=== PATIENT | male | born 1945 | race Caucasian/White ===

== ENCOUNTER → 2016-08-13 | Day surgery (SDC) | payer BC ==
[2016-08-02 10:04] VITALS: Ht 176.5 cm; Wt 113.6 kg
[~2016-08-13] VITALS: Ht 176.5 cm; Wt 113.6 kg
[~2016-08-13] MED LIST: ASCO500T3 PO; CHOL1000 PO; CLOP1TAB15 PO; CLR10 PO; FLV400 PO; LANS30CA12 PO; LEVO75TA5 PO; LIDOCAINE HCL 2% 2 ML VIAL (20MG/ML) ONE; LISI10TA PO; MIDAZOLAM HCL 1 MG/ML 2ML VIAL ONE; OLOP0.1S3 OPB; OMEG10007 PO; ONDANSETRON INJ 2 MG/ML 2 ML VIAL ONE; PARO10TA3 PO; PROPOFOL IV EMULSION 10 MG/ML 20 ML VIAL IV ONE; SIMV20TA2 PO; SODIUM CHLORIDE 0.9% 500ML 500 ML IV ONE; ZOLP10TA PO
[2016-08-13 09:15] VITALS: TEMP 37
--- NOTE | 2016-08-13 09:30 | Endo History and Physical ---
History & Physical Date of Service: Aug 13, 2016. Chief Complaint: history of polyps Referring Physician: Dr. Jc Clemons History of Present Illness 70 yo CM who presents for colonoscopy secondary to history of colon polyps. Past Surgical History Hx Cardiac Surgery: No Hx Internal Defibrillator: No Hx Abdominal Surgery: Yes (APPY) Hx of Implantable Prosthesis: No Hx Post-Op Nausea and Vomiting: No Hx Cancer Surgery: No Hx Thoracic Surgery: No Hx Orthopedic: Yes (RT KNEE ARTHROSCOPY X 2, RT RCR) Hx Urinary Tract Surgery: No Family History IBD Social History Smoking Status: Former Smoker Hx Substance Use: No Hx Alcohol Use: No Allergies Coded Allergies: No Known Allergies (Verified , 08/02/16) Current Medications Reported Home Medications Medications Dose Route/Sig Max Daily Dose Days Date Category Ambien (Zolpidem Tartrate) 10 Mg Tab 10 Mg PO HS 08/02/16 Reported Vitamin D3 (Cholecalciferol) 1,000 Unit Tab 1 Tab PO DAILY AFTERNOON 90 08/02/16 Reported Vitamin C (Ascorbic Acid) 500 Mg Tab 1 Tab PO DAILY AFTERNOON 08/02/16 Reported Paroxetine (Paroxetine HCl) 10 Mg Tab 0.5 Tab PO DAILY AFTERNOON 08/02/16 Reported Patanol 0.1% Oph (Olopatadine Hcl) 0.1 % Debi 1 Drop OPB DAILY PRN 08/02/16 Reported Levothyroxine Sodium 75 Mcg Tab 1 Tab PO DAILY AFTERNOON 90 08/02/16 Reported Claritin (Loratadine) 10 Mg Tab 10 Mg PO DAILY PRN 08/02/16 Reported Orange-3 (Fish Oil) 1 Ea Cap 2 Cap PO DAILY AFTERNOON 08/05/10 Reported Folvite * (Folic Acid) 400 Mcg Tab 400 Mcg PO DAILY AFTERNOON 08/05/10 Reported Plavix (Clopidogrel Bisulfate) 75 Mg Tab 75 Mg PO QPM 08/05/10 Reported Prinivil (Lisinopril) 10 Mg Tab 10 Mg PO HS 06/20/10 Reported Zocor (Simvastatin) 20 Mg Tab 20 Mg PO HS 03/29/09 Reported Prevacid (Lansoprazole) 30 Mg Capcr 30 Mg PO DAILY AFTERNOON 03/29/09 Reported Vital Signs Weight (Kilograms): 113.64 Height (Feet): 5 Height (Inches): 9.5 Date Time Temp Pulse Resp B/P Pulse Ox O2 Delivery O2 Flow Rate FiO2 08/13/16 09:15 37.0 62 16 138/62 96 Room Air Physical Exam General Appearance: WD/WN, no apparent distress Respiratory/Chest: Auscultation: breath sounds normal Cardiovascular: Heart Auscultation: RRR Abdomen: Bowel Sounds: normal Inspection & Palpation: soft, non-distended, no tenderness, guarding & rebound Assessment and Plan Assessment: 70 yo CM who presents for colonoscopy secondary to history of colon polyps. Plan: Proceed with colonoscopy.
--- NOTE | 2016-08-13 10:29 | GI REPORT ---
Procedure Date: 08/13/2016 9:29 AM Procedure: Colonoscopy Indications: High risk colon cancer surveillance: Personal history of colonic polyps Medicines: Monitored Anesthesia Care Complications: No immediate complications. Estimated Blood Loss: Estimated blood loss: none. Procedure: Pre-Anesthesia Assessment: - Prior to the procedure, a History and Physical was performed, and patient medications and allergies were reviewed. The patient's tolerance of previous anesthesia was also reviewed. The risks and benefits of the procedure and the sedation options and risks were discussed with the patient. All questions were answered, and informed consent was obtained. Prior Anticoagulants: The patient has taken Plavix (clopidogrel), last dose was 5 days prior to procedure. ASA Grade Assessment: III - A patient with severe systemic disease. After reviewing the risks and benefits, the patient was deemed in satisfactory condition to undergo the procedure. After I obtained informed consent, the scope was passed under direct vision. Throughout the procedure, the patient's blood pressure, pulse, and oxygen saturations were monitored continuously. The scope was introduced through the anus and advanced to the terminal ileum. The colonoscopy was performed without difficulty. The patient tolerated the procedure well. The quality of the bowel preparation was good. The terminal ileum, ileocecal valve, appendiceal orifice, and rectum were photographed. Findings: Two sessile polyps were found in the transverse colon and in the ascending colon. The polyps were 5 to 7 mm in size. These polyps were removed with a hot snare. Resection and retrieval were complete. Multiple small-mouthed diverticula were found in the sigmoid colon. Non-bleeding internal hemorrhoids were found during retroflexion. The hemorrhoids were small. Impression: - Two 5 to 7 mm polyps in the transverse colon and in the ascending colon, removed with a hot snare. Resected and retrieved. - Diverticulosis in the sigmoid colon. - Non-bleeding internal hemorrhoids. Recommendation: - Resume previous diet. - Continue present medications. - Repeat colonoscopy for surveillance based on pathology results. - Return to primary care physician as previously scheduled. Luis E Caba DO 08/13/2016 10:28:44 AM This report has been signed electronically. Note Initiated On: 08/13/2016 9:29 AM I attest to the content of the Intraoperative Record and orders documented therein, exceptions below
--- NOTE | 2016-08-13 10:31 | Anesthesiology Progress Note ---
Anesthesia Post Op Note Date & Time Aug 13, 2016 at 10:30 Vital Signs Pain Intensity: 0 Vital Signs Past 12 Hours Date Time Temp Pulse Resp B/P Pulse Ox O2 Delivery O2 Flow Rate FiO2 08/13/16 10:24 58 16 130/84 95 Room Air 08/13/16 10:17 54 18 117/75 95 Room Air 08/13/16 10:10 51 16 130/77 96 Room Air 08/13/16 09:15 37.0 62 16 138/62 96 Room Air Notes Mental Status: alert / awake / arousable, participated in evaluation Pt Amnestic to Procedure: Yes Nausea / Vomiting: adequately controlled Pain: adequately controlled Airway Patency, RR, SpO2: stable & adequate BP & HR: stable & adequate Hydration State: stable & adequate Anesthetic Complications: no major complications apparent Pt doing well.
--- NOTE | 2016-08-13 10:32 | Discharge Instructions ---
Endoscopy Patient Instructions Date / Procedure(s) Performed Aug 13, 2016. Colonoscopy Allergy Information Coded Allergies: No Known Allergies (Verified , 08/02/16) Discharge Date / Findings Aug 13, 2016. Colon polyps Diverticulosis Internal hemorrhoids Medication Instructions Stopped Medication(s): stopped Plavix on Tuesday,stopped all other meds on Tuesday OK to resume all medications today as prescribed Reported Home Medications Medications Dose Route/Sig Max Daily Dose Days Date Category Ambien (Zolpidem Tartrate) 10 Mg Tab 10 Mg PO HS 08/02/16 Reported Vitamin D3 (Cholecalciferol) 1,000 Unit Tab 1 Tab PO DAILY AFTERNOON 90 08/02/16 Reported Vitamin C (Ascorbic Acid) 500 Mg Tab 1 Tab PO DAILY AFTERNOON 08/02/16 Reported Paroxetine (Paroxetine HCl) 10 Mg Tab 0.5 Tab PO DAILY AFTERNOON 08/02/16 Reported Patanol 0.1% Oph (Olopatadine Hcl) 0.1 % Debi 1 Drop OPB DAILY PRN 08/02/16 Reported Levothyroxine Sodium 75 Mcg Tab 1 Tab PO DAILY AFTERNOON 90 08/02/16 Reported Claritin (Loratadine) 10 Mg Tab 10 Mg PO DAILY PRN 08/02/16 Reported [place]-3 (Fish Oil) 1 Ea Cap 2 Cap PO DAILY AFTERNOON 08/05/10 Reported Folvite * (Folic Acid) 400 Mcg Tab 400 Mcg PO DAILY AFTERNOON 08/05/10 Reported Plavix (Clopidogrel Bisulfate) 75 Mg Tab 75 Mg PO QPM 08/05/10 Reported Prinivil (Lisinopril) 10 Mg Tab 10 Mg PO HS 06/20/10 Reported Zocor (Simvastatin) 20 Mg Tab 20 Mg PO HS 03/29/09 Reported Prevacid (Lansoprazole) 30 Mg Capcr 30 Mg PO DAILY AFTERNOON 03/29/09 Reported Provider Instructions Activity Restrictions - No exercising or heavy lifting for 24 hours. - Do not drink alcohol the day of the procedure. - Do not drive a car or operate machinery until the day after the procedure. - Do not make any important decisions or sign important papers in 24 hours after the procedure. Following Day: - Return to full activity which may include returning to work/school. Diet Start your diet with liquids and light foods (jello, soup, juice, toast). Then eat your usual diet if not nauseated. Treatment For Common After Affects For mild abdominal pain, bloating, or excessive gas: - Rest - Eat lightly - Lie on right side Follow-Up Information Follow-up with Dr. Jc Clemons as scheduled Anesthesia Information What You Should Know You have had a procedure that required some medicine to reduce anxiety and discomfort. This treatment is called moderate sedation. After receiving the treatment, you may be sleepy, but you will be able to breathe on your own. The effects of the treatment may last for several hours. Follow these instructions along with Activity/Diet recommendations noted above: * Do NOT do anything where dizziness or clumsiness would be dangerous. * Rest quietly at home today, then you can be up and about tomorrow. * Have a responsible person stay with you the rest of today. * You may have had an I.V. today. If so, you may take the dressing off later today. Recommendations Call your doctor if: * Trouble breathing * Continuous vomiting for more than 24 hours * Temperature above 101 degrees * Severe abdominal pain or bloating * Pain not relieved by pain medicine ordered * There is increased drainage or redness from any incision * A large amount of rectal bleeding greater than 2-3 tablespoons. (If you had a polyp/s removed or have hemorrhoids, a small amount of blood - from the rectum is to be expected.) * You have any unanswered questions or concerns. IN THE EVENT OF A SERIOUS EMERGENCY, GO TO THE NEAREST EMERGENCY ROOM Your discharge instructions were prepared by provider Luis E Caba. Patient Instructions Signature Page Cristian Rivera Patient (or Guardian) Signature/Date: I have read and understand the instructions given to me by my caregivers. Caregiver/RN/Doctor Signature/Date: The above-named patient and/or guardian has received patient instructions on this date. + Original Patient Signature Page (only) stays with chart. Please make copy for patient.
[2016-08-13 10:37] VITALS: BP 142/86; PULSE 55; O2SAT 96
== END | disposition home or self-care (01) ==
LOC: C.GI 08:56
PROVIDERS: ATTEND Internal Medicine
DX: Z12.11 Encounter for screening for malignant neoplasm of colon (principal); Z86.010 Personal history of colon polyps; D12.2 Benign neoplasm of ascending colon; D12.3 Benign neoplasm of transverse colon; K57.30 Diverticulosis of large intestine without perforation or abscess without bleeding; K64.8 Other hemorrhoids; Z79.02 Long term (current) use of antithrombotics/antiplatelets; Z79.899 Other long term (current) drug therapy; Z87.891 Personal history of nicotine dependence

== ENCOUNTER → 2016-11-03 | Outpatient (CLI) | payer BC ==
[~2016-11-03] MED LIST changes: -LIDOCAINE HCL 2% 2 ML VIAL (20MG/ML) ONE; -MIDAZOLAM HCL 1 MG/ML 2ML VIAL ONE; +OLOP0.1S2 OPB; -OLOP0.1S3 OPB; -ONDANSETRON INJ 2 MG/ML 2 ML VIAL ONE; -PROPOFOL IV EMULSION 10 MG/ML 20 ML VIAL IV ONE; -SODIUM CHLORIDE 0.9% 500ML 500 ML IV ONE
== END | disposition home or self-care (01) ==
LOC: C.LAB1850 09:37
PROVIDERS: ATTEND Internal Medicine
DX: R97.20 Elevated prostate specific antigen [PSA] (principal)

== ENCOUNTER → 2017-01-20 | Outpatient (CLI) | payer BC | END | disposition home or self-care (01) | LOC: C.PATHSPEC 12:48 | PROVIDERS: ATTEND Urology | DX: R97.20 Elevated prostate specific antigen [PSA] (principal) ==

== ENCOUNTER → 2017-02-10 | Outpatient (CLI) | payer BC ==
--- NOTE | 2017-02-10 09:27 | DIAGNOSTIC IMAGING REPORT ---
L ANKLE MIN 3 VIEWS ROUTINE CLINICAL HISTORY: M25.579 left ankle pain COMPARISON: None. DISCUSSION: No acute fractures or dislocations are visualized. There is a small ossicle at the level the medial malleolar tip. This is felt to be old. There is a small plantar calcaneal spur. No erosive or destructive changes are visualized. IMPRESSION: No fractures identified. No erosive or destructive lesions are evident. Electronically signed by: Robert Nieves M.D. 02/10/2017 9:26 AM Dictated Date/Time: 02/10/2017 9:25 AM
[2017-02-10 10:17] LABS: BASO % 0.2 %; BASO ABS # 0.01 K/uL (0-0.2); COMPLETE YES; HEMATOCRIT 43.1 % (42-52); IG% 0.8 %; LYMPH % 37.2 %; LYMPH ABS # 2.35 K/uL (1.2-3.4); MEAN CELL VOLUME 87.2 fL (80-100); MEAN CORPUSCULAR HEMOGLOBIN 30.2 pg (25-34); MEAN CORPUSCULAR HGB CONC 34.6 g/dl (32-36); MEAN PLATELET VOLUME 10.6 fL (7.4-10.4); MONO % 10.1 %; NEUT % 48.7 %; PLATELET COUNT 179 K/uL (130-400); RED BLOOD COUNT 4.94 M/uL (4.7-6.1); WHITE BLOOD COUNT 6.31 K/uL (4.8-10.8)
== END | disposition home or self-care (01) ==
LOC: C.RAD1850 09:03
PROVIDERS: ATTEND Nurse Practitioner Adult Health
DX: M25.579 Pain in unspecified ankle and joints of unspecified foot (principal)

== ENCOUNTER → 2017-02-23 | Outpatient (CLI) | payer BC ==
[~2017-02-23] MED LIST changes: -OLOP0.1S2 OPB; +OLOP0.1S3 OPB
== END | disposition home or self-care (01) ==
LOC: C.LAB1850 09:58
PROVIDERS: ATTEND Nurse Practitioner Adult Health
DX: E79.0 Hyperuricemia without signs of inflammatory arthritis and tophaceous disease (principal)

== ENCOUNTER → 2017-04-13 | Outpatient (CLI) | payer BC ==
[2017-04-13 12:42] LABS: ESTIMATED AVERAGE GLUCOSE 137 mg/dl; HA1C FLAG Normal (Normal)
[2017-04-13 12:43] LABS: ALT/SGPT 32 U/L (12-78); AST/SGOT 21 U/L (15-37); BLOOD UREA NITROGEN 21 mg/dl (7-18); BUN/CREATININE RATIO 17.8 (10-20); CALCIUM 8.5 mg/dl (8.5-10.1); CARBON DIOXIDE 24 mmol/L (21-32); CHLORIDE 107 mmol/L (98-107); CREATININE 1.15 mg/dl (0.60-1.40); GLUCOSE 135 mg/dl (70-99); POTASSIUM 4.4 mmol/L (3.5-5.1); SODIUM 137 mmol/L (136-145)
[2017-04-13 12:58] LABS: CHOLESTEROL 175 mg/dl (0-200); HDL CHOLESTEROL 44 mg/dl; LDL CHOLESTEROL CALCULATED 106 mg/dl; TRIGLYCERIDES 127 mg/dl (0-150); VERY LOW DENSITY LIPOPROT CALC 25 mg/dl
== END | disposition home or self-care (01) ==
LOC: C.LAB1850 10:47
PROVIDERS: ATTEND Internal Medicine
DX: E78.5 Hyperlipidemia, unspecified (principal); E03.9 Hypothyroidism, unspecified; E11.9 Type 2 diabetes mellitus without complications

== ENCOUNTER → 2017-05-24 | Outpatient (CLI) | payer BC ==
--- NOTE | 2017-05-24 16:45 | DIAGNOSTIC IMAGING REPORT ---
L VENOUS DOPP LOWER EXT UNILAT CLINICAL HISTORY: M79.669 Calf painR22.40 Localized swelling, mass and lump, lower pain. Edema. TECHNIQUE: Venous Doppler COMPARISON STUDY: None FINDINGS: Superficial venous thrombosis involving the left calf. All major deep venous structures are intact. No evidence of deep venous thrombosis. IMPRESSION: Mild superficial calf superficial thrombophlebitis. No evidence for deep venous thrombosis. The above report was generated using voice recognition software. It may contain grammatical, syntax or spelling errors. Electronically signed by: Martin Arce M.D. 05/24/2017 4:43 PM Dictated Date/Time: 05/24/2017 4:42 PM
== END | disposition home or self-care (01) ==
LOC: C.ULTR 15:53
PROVIDERS: ATTEND Physician Assistant
DX: M79.669 Pain in unspecified lower leg (principal); R22.40 Localized swelling, mass and lump, unspecified lower limb

== ENCOUNTER 2019-01-29 09:51 | Observation (INO) ==
[2019-01-29] MEDS ORDERED: ASPIRIN 81 MG CHEW ONE (12:29)
[2019-01-29] MEDS ORDERED: CLOPIDOGREL BISULFATE 75 MG TAB ONE (12:30)
[2019-01-29] MEDS ORDERED: NiCARDipine HCL INJ 2.5 MG/ML 10 ML AMP ONE (13:20)
[2019-01-29] MEDS ORDERED: HEPARIN (PORCINE) 1000 UNIT/ML 10 ML (CATH LAB USE ONLY) ONE ×2 (13:20→14:36)
[2019-01-29] MEDS ORDERED: MIDAZOLAM HCL 1 MG/ML 2ML VIAL ONE ×2 (13:21→14:41)
[2019-01-29] MEDS ORDERED: fentaNYL citrate 100 MCG/2 ML VIAL ONE (13:21)
[2019-01-29] MEDS ORDERED: NITROGLYCERIN/D5W 100MCG/ML 20ML SYR ONE (13:22)
--- NOTE | 2019-01-29 13:33 | Pre Anesthesia Assessment ---
Date of Service January 29, 2019 Pre Sedation Assessment Vital Signs Temp Pulse Resp BP Pulse Ox 01/29/19 10:24 98.1 F 45 L 16 177/90 H 95 Cardiovascular RRR, no murmur, no edema Respiratory normal respiratory effort, lungs clear to auscultation Pre-Sedation Airway Assessment Smoking Status: Never smoker Hx Sleep Apnea: No Hx Difficult Intubation: No Short, Thick Neck: No Thyromental Distance: > or= 3.5 Finger Breadths Oral Cavity: + WNL Mallampati Class: III ASA: ASA3 NPO Status Date of Last Intake of Fluids: 01/29/19 Time of Last Intake of Fluids: 07:00 Last Oral Intake of Fluids Comment: sips with pills Date of Last Intake of Solid Food: 01/28/19 Time of Last Intake of Solid Foods: 23:00 Procedure Planning Contraindications for Sedation: none Current Medications Reviewed: Yes Notes The planned sedation has been discussed with the patient. Informed Consent was obtained. I have identified the patient, determined the appropriateness of sedation and have assessed the patient immediately prior to the procedure. All medicine(s) and interventions are by my order.
--- NOTE | 2019-01-29 13:33 | History & Physical Bridge Note ---
Date of Service January 29, 2019 History & Physical Bridge Note I have examined the patient, reviewed the History & Physical and in the interval since the performance of the History & Physical I have noted the following changes of clinical significance: no changes noted
[2019-01-29] MEDS ORDERED: CLOPIDOGREL BISULFATE 300 MG TAB ONE (14:44)
[2019-01-29] MEDS ORDERED: ONDANSETRON INJ 2 MG/ML 2 ML VIAL IV PRN (14:46)
[2019-01-29] MEDS ORDERED: ACETAMINOPHEN 325 MG TAB PO PRN (14:46)
[2019-01-29] MEDS ORDERED: DESLORATADINE 5 MG PO PRN (14:48)
[2019-01-29] MEDS ORDERED: OLOPATADINE OP PRN (14:48)
--- NOTE | 2019-01-29 14:50 | Post Anesthesia Assessment ---
Date of Service January 29, 2019 Post Sedation Assessment Vital Signs Temp Pulse Resp BP Pulse Ox 01/29/19 10:24 98.1 F 45 L 16 177/90 H 95 Recovery Score Activity: Moves 4 extremities Respiration: Deep Breath/Cough Circulation: +/-20% PreAnes Value Consciousness: Fully Awake Discharge Sedation Level of Care: Fast Track Phase II Post Sedation Plan On clinical assessment, the patient appears to have tolerated the sedation without complications. Patient is recovering as anticipated. Patient will continue to be monitored by nursing and may be discharged when sedation discharge criteria are met per below protocol. Upon Completions of procedure and additional 15 minutes continue every 5 minute vital signs and the P.A.R. score; then discharge to a Phase I or Fast Track to Phase II per the following guidelines: * Discharge Patient to appropriate Phase II area if PAR is 8 or greater or return to pre- procedure baseline. The post - procedure orders will be as directed. * If PAR score is less than 8 or not return to pre-procedure baseline then patient will follow Phase I monitoring till PAR is reached for Phase II. The Phase I may be done in procedure room or may call to secure a Phase I area. * If naloxone or flumazenil are used for reversal, hold in Phase I for continued monitoring from when last reversal dose was given for a minimum of 60 minutes or longer pending the nurse and/or physician discretion of patient condition before discharge to Phase II. Please call the Sedation Physician to re-evaluate and complete post-note for discharge to Phase II area. Do NOT discharge from procedure sedation or Phase 1 until post- sedation evaluation note is complete by procedure /sedation MD Sedation Discharge Instructions to be given to the patient at discharge to home.
--- NOTE | 2019-01-29 14:57 | Cardiac Catheterization ---
[facility] Data: Log Cut Off Sawyer Cardiac Status Clinical evaluation leading to the procedure CAD Presenation: Positive Stress Test Anginal Classification: CCS III Heart Failure: No Cardiogenic Shock within 24 Hours: No Cardiac Arrest within 24 Hours: No Imaging Studies Past 6 Months: Yes Stress Studies Past 6 Months: Yes Stress Echocardiogram: Yes - Positive and Risk/Extent of Ischemia (Intermediate) Diagnostic Physicians Name: Steve Lopez MD Status: Elective Closure Device Percutaneous Entry Location: Radial Closure Device: Radial Band Recommendations: PCI without planned CABG PCI Indication: + Stress Test Lesion Segment Name: Mid RCA Culprit Artery: Yes Stenosis Prior to Rx (%): 95 Chronic Total Occlusion: No IVUS: No FFR: No Pre-Procedure SILAS Flow: 3 Previously Treated Lesion: No Lesion Complexity: Non-High/Non-C Lesion Length (mm): 12 Thrombus Present: No Bifurcation Lesion: No Guidewire Across Lesion: Stenosis Post-Procedure (%): 0 Post-Procedure SILAS Flow: 3 Devices(s) Deployed: Yes Yes Intraprocedure Events Significant Disection: No Perforation: No Cardiac Cath Procedure Full Procedure Date January 29, 2019 Pre-Procedure Diagnosis Pre-Procedure Diagnosis: Positive Stress Test AUC Score AUC Score: 7 Post-Procedure Diagnosis Post-Procedure Diagnosis: Severe CAD, Successful PCI and Normal Intracardiac Pressures Procedure(s) Performed Procedure(s) Performed: Coronary Angiography, Left Heart Cath and Drug Eluting Stent Frame Straightener Steve Lopez MD Nursing Aide(s) Howard Estimated Blood Loss Estimated Blood Loss: 10 Medication(s) Medication(s): Clopidogrel, Fentanyl, Heparin, Lidocaine 1%, Nicardipine, Nitroglycerin and Versed Summary of Findings Indication: Accelerating angina, abnormal stress test Access: 6 Fr right radial artery Catheters: [place], AR-1 guide Findings: LM -moderate caliber, short, luminal irregularities LAD -moderate caliber, 50% proximal to mid disease at takeoff of first septal, 30 to 40% mid segment disease, distal luminal irregularities prior to wrapping around apex. Gives off 2 small diagonals without significant disease Ramusmoderate caliber vessel, proximal luminal irregularities, bifurcates in the midsegment Circumflex -small caliber vessel, luminal irregularities, gives off high OM1 with mild disease. RCA -dominant, large caliber vessel, 50% earlymid RCA, 95% latemid, 30% distal prior to takeoff of right PDA. PLB/PDA luminal irregularities LVEDP -15 -- PCI -- Antithrombotic therapy: Heparin, clopidogrel Procedure: RCA cannulated with AR-1 guide Laundry Tub Maker 50 wire passed across lesion into distal vessel Latemid lesion predilated with 2.5 compliant balloon Dilated lesion stented with 4.0 x 18 mm [place] drug-eluting stent Stent post-dilated with 4.5 noncompliant balloon IC vasodilators administered for spasm Post procedure SILAS 3 flow, stent well expanded with minimal residual stenosis and no apparent cardiac complications. Arterial Closure: TR band Summary: 1. Severe single vessel coronary artery disease -95% latemid RCA stenosis 2. Moderate residual coronary artery disease 50% proximal LAD at takeoff of the first septal 50% earlymid RCA upstream from new AIDEN 3. Normal intracardiac filling pressure 4. Successful PCI of latemid RCA with single drug-eluting stent (4.0 x 18 mm Geraldo; postdilated with 4.5 NC). Recommendations: To PCU for continued monitoring Reloaded with clopidogrel in medical lab technologist Continue dual-antiplatelet therapy for at least 6-month Continue statin, and ASCVD risk factor modification Consult cardiac Rehab Hemodynamics Rest Ao:: 147/65/99 Final Ao: 150/74/103 LV: 103/15 Recommendations Recommendations: PCI without planned CABG Specimens Specimens: None Radiation Exposure (mGy) 2647 Contrast (mls) 165 Fluids (cc crystalloids) Fluids (cc crystalloids): 100 Drains Drains: None Anesthesia Moderate Procedural Complication(s) None Disposition PCU I attest to the content of the Intraoperative Record and any orders documented therein. Any exceptions are noted below.
[2019-01-29] MEDS ORDERED: SODIUM CHLORIDE 0.9% 1000ML 1,000 ML IV SCH (15:00)
[2019-01-29] MEDS ORDERED: FAMCICLOVIR 250 MG PO SCH (15:00)
[2019-01-29] MEDS ORDERED: lisinopriL 10 MG TAB PO ONE (16:15)
[2019-01-29] MEDS ORDERED: HydrALAZINE HCL 20 MG/ML VIAL IV STA (17:56)
[2019-01-29] MEDS ORDERED: HydrALAZINE HCL 20 MG/ML VIAL ONE (18:02)
[2019-01-29] MEDS: PANTOprazole 40 MG TAB PO SCH (19:42)
[2019-01-29] MEDS: METOPROLOL TARTRATE 25 MG TAB PO SCH (19:42)
[2019-01-29] MEDS ORDERED: ZOLPIDEM TARTRATE 5 MG TAB PO SCH (21:00)
[2019-01-30] MEDS ORDERED: LEVOTHYROXINE SODIUM 75 MCG TABLET PO SCH (06:30)
[2019-01-30 07:22] LABS: Basophils # (auto) 0.02 K/uL (0-0.2); Basophils % (auto) 0.3 %; Eosinophils # (auto) 0.19 K/uL (0-0.5); Eosinophils % (auto) 2.9 %; Hematocrit (blood only) 40.6 % (42-52); Hemoglobin 13.9 g/dL (14.0-18.0); Immature Granulocytes # (auto) 0.06 K/uL (0.00-0.02); Immature Granulocytes % (auto) 0.9 %; Lymphocytes # (auto) 1.84 K/uL (1.2-3.4); Lymphocytes % (auto) 28.4 %; Mean Corpuscular Hemoglobin 30.4 pg (25-34); Mean Corpuscular Hgb Conc 34.2 g/dL (32-36); Mean Corpuscular Volume 88.8 fL (80-100); Monocytes # (auto) 0.76 K/uL (0.11-0.59); Monocytes % (auto) 11.7 %; Neutrophils # (auto) 3.61 K/uL (1.4-6.5); Neutrophils % (auto) 55.8 %; Platelet Count 160 K/uL (130-400); RDW Coefficient of Variation 13.6 % (11.5-14.5); RDW Standard Deviation 44.4 fL (36.4-46.3); Red Blood Count 4.57 M/uL (4.7-6.1); White Blood Count 6.48 K/uL (4.8-10.8)
[2019-01-30 07:54] LABS: BUN Creatinine Ratio 15.1 (10-20); Calcium 8.9 mg/dl (8.5-10.1); Creatinine Clr Calc Pharmacy 79.2 ml/min; Est GFR (African American) 78.8; Potassium 3.9 mmol/L (3.5-5.1)
--- NOTE | 2019-01-30 08:50 | Cardiology Progress Note ---
Date of Service January 30, 2019 Assessment & Plan (1) Coronary artery disease: --status post successful PCI mid-late RCA (4.0 x 18 mm [place]); moderate residual CAD (50% proximal LAD, 50% early-mid RCA) 2. Hypertension--BP elevated 3. Bradycardia 4. Type 2 diabetes 5. History of TIA Subjective Patient is feeling well today. Post PCI with single AIDEN to late-mid RCA yesterday without complication. Also with moderate nonobstructive disease of the proximal LAD and early-mid RCA. No chest pain, shortness of breath, palpitations, lightheadedness, near syncope or syncope. No abnormal bleeding. No issues at right radial access site. Tele reviewed-- Sinus bradycardia in the mid 40s-50s. Review of Systems Review of Systems: All systems reviewed & are unremarkable except as noted in HPI & below Physical Exam Physical Exam: General: No acute distress, comfortable. HEENT: Sclerae anicteric. Neck: Normal carotid upstrokes, no bruits. No appreciable JVD. Lungs: Clear to auscultation bilaterally without rales, rhonchi or wheezes. Cardiac: Regular rate and rhythm. S1-S2 normal. No appreciable murmur, gallop or rub. Abdomen: Soft and nontender. Bowel sounds normal. Extremities/vascular: --Well perfused. No peripheral edema. --Radial, DP and PT pulses 2+ bilaterally --Right radial acces site with minimal ecchymosis. No hematoma. Distal pulse/sensation intact Skin: No rash Neurologic: Nonfocal Psychiatric: Affect appropriate. Alert and oriented. Results & Data Vital Signs (Past 12 Hours) Vital Signs Temp Pulse Pulse Resp BP Pulse Ox 01/30/19 07:47 36.6 C 44 L 158/83 H 96 01/30/19 03:43 36.5 C 47 L 18 161/83 H 98 01/29/19 23:46 36.6 C 45 L 18 161/90 H 95 01/29/19 23:10 43 L PG Care Time/CCT Total # of Minutes Spent Total Time Spent with Patient: Total time spent is greater than 50% in coordination of care (as documented) at patient's floor/unit and/or counseling patient:
[2019-01-30] MEDS ORDERED: FOLIC ACID 400 MCG TAB PO SCH (09:00)
[2019-01-30] MEDS ORDERED: ASPIRIN 81 MG ECTAB PO SCH (09:00)
[2019-01-30] MEDS ORDERED: MULTIVITAMIN TAB PO SCH (09:00)
[2019-01-30] MEDS ORDERED: CLOPIDOGREL BISULFATE 75 MG TAB PO SCH (09:00)
[2019-01-30] MEDS ORDERED: lisinopriL 10 MG TAB PO SCH (09:00)
[2019-01-30] MEDS ORDERED: PARoxetine HCl 10 MG TAB PO SCH (09:00)
[2019-01-30] MEDS ORDERED: ATORVASTATIN 40 MG TAB PO SCH (09:00)
[2019-01-30] MEDS: METOPROLOL TARTRATE 25 MG TAB PO SCH (09:04)
[2019-01-30] MEDS: PANTOprazole 40 MG TAB PO SCH (09:05)
[2019-01-30] MEDS ORDERED: LORATADINE 10 MG TAB PO PRN (09:13)
--- NOTE | 2019-01-30 18:09 | Discharge Summary ---
Date of Service January 30, 2019 Admission HPI Per Admitting Provider Mr. Rivera is a 73 year old male with a medical history significant for hypertension, dyslipidemia, diet-controlled type 2 diabetes, history of TIA, chronic back pain, GERD and hypothyroidism who presented to [facility] in the setting of abnormal stress test. At initial visit he reported that over past 2 months his exercise tolerance has declined significantly. He previously was able to walk 30 minutes on the treadmill and gradually that has decreased to 3-4 minutes before experiencing limiting dyspnea and left-sided chest discomfort. He also notes the symptoms when walking up an incline about 40 yd to feed the dear at his home. His symptoms resolved within several minutes of rest. No symptoms at rest. He attributed to his symptoms to the weight he has gained since retiring about 15 years ago. He has intermittent lower extremity edema with associated heaviness. No claudication. No shortness of breath at rest, orthopnea, PND. He has occasional lightheadedness with activity. He denies palpitations, near-syncope or syncope. No abnormal bleeding. Due to his symptoms Dr. Clemons recommended stress echocardiogram which was performed last week. His stress test was abnormal with EKG changes and the patient experienced shortness of breath and chest pain with exercise. Resting echo showed normal LV function. Specialty Data Cardiology 1. Severe single vessel coronary artery disease -95% latemid RCA stenosis 2. Moderate residual coronary artery disease 50% proximal LAD at takeoff of the first septal 50% earlymid RCA upstream from new AIDEN 3. Normal intracardiac filling pressure 4. Successful PCI of latemid RCA with single drug-eluting stent (4.0 x 18 mm [place]; postdilated with 4.5 NC). Discharge Data Consultations 01/29/19 14:48 Consult Cardiac Rehabilitation Routine Procedures Performed Operation Date: 01/29/19 11:00 Actual Procedures s Cineradiography w/Routine Exam - Roberto Lopez MD p Cath, Left with Cors and Vent - Roberto Lopez MD p Drug Eluting Stent SGl Vessel - Roberto Lopez MD Hospital Course (1) Coronary artery disease: --status post successful PCI mid-late RCA (4.0 x 18 mm Geraldo); moderate residual CAD (50% proximal LAD, 50% early-mid RCA) 2. Hypertension--BP elevated 3. Bradycardia 4. Type 2 diabetes 5. History of TIA Patient underwent coronary angiography via right radial artery was found a severe latemid RCA stenosis which was treated with a single drug-eluting stent. Procedure uncomplicated and was admitted for observation to telemetry service. Patient was hypertensive up into the 180s requiring increase lisinopril and IV hydralazine. Overnight had no additional chest pain. Telemetry remarkable for sinus bradycardia down to the 40s during which patient asymptomatic. On the morning of admission patient feeling well. Blood pressure improved. No apparent access site complications. Post procedure labs unchanged. Patient discharged home on prior Plavix along with added aspirin. Simvastatin changed to high intensity atorvastatin. Lisinopril increased from 10 to 20 mg. Follow-up with cardiology in 2 weeks. Discharge Instructions Home Medications ascorbic acid (vitamin C) [Vitamin C] 2 tab PO DAILY 05/24/18 [History Confirmed 01/29/19] cholecalciferol (vitamin D3) [Vitamin D3] 1,000 unit PO DAILY 05/24/18 [History Confirmed 01/29/19] clopidogrel [Plavix] 75 mg PO DAILY 05/24/18 [History Confirmed 01/29/19] folic acid 0.4 mg PO DAILY 05/24/18 [History Confirmed 01/29/19] levothyroxine 75 mcg PO DAILY 05/24/18 [History Confirmed 01/29/19] multivitamin 0.5 cap PO DAILY 05/24/18 [History Confirmed 01/29/19] paroxetine HCl [Paxil] 5 mg PO DAILY 05/24/18 [History Confirmed 01/29/19] zinc 50 mg PO DAILY 05/24/18 [History Confirmed 01/29/19] famciclovir 250 mg PO Q12H 07/13/18 [History Confirmed 01/29/19] lansoprazole 30 mg capsule,delayed release 30 mg PO DAILY #90 cap 11/17/18 [Rx Confirmed 01/29/19] zolpidem 5 mg tablet 5 mg PO HS #30 tab 11/17/18 [Rx Confirmed 01/29/19] desloratadine 5 mg tablet 5 mg PO DAILY PRN #30 tab 12/02/18 [Rx Confirmed 01/29/19] omega 1-vmc-gte-fish oil 1,000 mg (120 mg-180 mg) capsule 2 cap PO DAILY cap 12/24/18 [History Confirmed 01/29/19] olopatadine 0.1 % eye drops 1 drp OPHTHALMIC (EYE) BID PRN #5 ml 12/28/18 [Rx Confirmed 01/29/19] metoprolol tartrate 25 mg tablet 25 mg PO BID #60 tab 01/23/19 [Rx Confirmed 01/29/19] aspirin [Ecotrin Low Strength] 81 mg PO QAM 30 Days #30 tab 01/30/19 [Rx] atorvastatin 40 mg PO QAM #30 tab 01/30/19 [Rx] lisinopril 20 mg PO DAILY #30 tab 01/30/19 [Rx]
== END 2019-01-30 12:34 | disposition home or self-care (01) ==
LOC: CC 09:51 → 2S 09:51

== ENCOUNTER 2023-03-05 11:02 | Observation (INO) ==
[2023-03-05] MEDS ORDERED: ASPIRIN CHEW 324 MG PO STA (11:25)
--- NOTE | 2023-03-05 11:49 | Emergency Department Note ---
History of Present Illness General Chief Complaint: Chest Pain Stated Complaint: CHEST PAIN Time Seen by Provider: 03/05/23 11:16 History of Present Illness Provider Complaint: chest pain Onset (ago): hour(s) (3.5) Duration: improved and now resolved Onset: during rest Pain Location: substernal Pain Radiation: none Severity: moderate Maximum Pain Intensity: 6 Current Pain Intensity: 0 Quality: + heaviness and + dull Relieved By: + nothing Exacerbated By: + nothing Context: no recent illness, no recent surgery, no recent immobilization, no recent travel, no trauma/injury, no new medications or no history of DVT/PE Associated symptoms: no nausea, no vomiting, no dyspnea, no syncope, no palpitations, no fever, no cough or no leg swelling Patient reports he is scheduled to have cardiac catheterization performed by Dr. Lopez on Tuesday and was told to come to the emergency department if he develops chest pain in the meantime. Home Medications Medication Instructions Recorded Confirmed Type ascorbic acid (vitamin C) 500 mg 1 tab PO BID 05/24/18 03/05/23 History tablet (Vitamin C) cholecalciferol (vitamin D3) 25 1,000 unit PO QAM 05/24/18 03/05/23 History mcg (1,000 unit) capsule (Vitamin D3) folic acid 400 mcg tablet 0.4 mg PO QAM 05/24/18 03/05/23 History zinc 50 mg tablet 50 mg PO QAM 05/24/18 03/05/23 History omega 9-yvh-tex-fish oil 1,000 mg 2 cap PO QAM 12/24/18 03/05/23 History (120 mg-180 mg) capsule (Fish Oil) multivitamin 1 tab PO QAM 02/07/19 03/05/23 History vitamin E 200 unit capsule 400 unit PO QAM 07/06/21 03/05/23 History melatonin 5 mg capsule 5 mg PO HS PRN Sleep 06/28/22 03/05/23 History psyllium husk 3.4 gram/5.4 gram 1 tbsp PO QAM 06/28/22 03/05/23 History oral powder (Metamucil) pantoprazole 40 mg tablet,delayed 40 mg PO BID PRN gerd #360 tabs 07/15/22 03/05/23 Rx release atorvastatin 80 mg tablet 80 mg PO QAM 08/04/22 03/05/23 History levothyroxine 75 mcg tablet 75 mcg PO QAM 08/04/22 03/05/23 History (Synthroid) paroxetine HCl 10 mg tablet (Paxil) 5 mg PO QAM 08/04/22 03/05/23 History hydrochlorothiazide 12.5 mg tablet 12.5 mg PO QAM #90 tabs 10/18/22 03/05/23 Rx nystatin 100,000 unit/gram topical 1 applic topical BID PRN Rash 11/05/22 03/05/23 History cream tamsulosin 0.4 mg capsule 0.4 mg PO DAILY 11/12/22 03/05/23 History dulaglutide 0.75 mg/0.5 mL 0.75 mg (0.5 mL) subcut WK #2 mL 12/27/22 03/05/23 Rx subcutaneous pen injector (Trulicity) lisinopril 20 mg tablet 20 mg PO QAM #30 tabs 01/10/23 03/05/23 Rx clopidogrel 75 mg tablet (Plavix) 75 mg PO QAM #90 tabs 01/18/23 03/05/23 Rx zolpidem 5 mg tablet (Ambien) 10 mg (2 x 5 mg) PO HS PRN 02/03/23 03/05/23 Rx insomnia #60 tabs olopatadine 0.1 % eye drops 1 drp ophthalmic (eye) BID PRN 02/28/23 03/05/23 Rx NEEDED #5 mL Allergies Allergy/AdvReac Type Severity Reaction Status Date / Time amoxicillin Allergy Intermediate STOMACH Verified 02/24/23 14:18 UPSET Past Med/Surg History Medical History Difficult intravenous access pt reports IV team needed to obtain IV access. Prostate cancer (03/12/21) dx'd 2020. hx radiation. Renal cyst Spinal stenosis of lumbar region Chronic low back pain Facet arthritis of lumbar region Coronary artery disease Follows with Dr. Lopez Type 2 diabetes mellitus Internal hemorrhoids Esophageal reflux Diverticulosis BPH with obstruction/lower urinary tract symptoms Anxiety disorder Excessive anger REASON FOR PAXIL; CONTROLLED Sciatica associated with disorder of lumbar spine Rheumatoid arthritis Obesity (BMI 30-39.9) Schatzki's ring STRETCHING IN PAST X 3 Herniated disc BACK INJECTIONS GERD (gastroesophageal reflux disease) Hypothyroidism Seasonal allergies Transient ischemic attack (TIA) REASON FOR TAKING PLAVIX (06/20/10) Hypertension Hyperlipidemia Insomnia Surgical History H/O vasectomy History of heart artery stent x 1 (2019) History of cardiac cath 2019 - [facility] d/t increased sob - 1 stent History of cataract surgery History of surgery Removal of Oncocytic papillary cystadenoma 07/11/18 History of repair of anterior cruciate ligament of right knee History of esophagogastroduodenoscopy (EGD) History of colonoscopy History of tooth extraction Hx of prostate biopsy History of repair of rotator cuff RT History of arthroscopy RT KNEE X 2 History of appendectomy History of endoscopic sinus surgery NASAL POLYP REMOVAL Family History Mother Family history of diabetes mellitus Leukemia Cholelithiases Grandmother (Paternal) Family history of diabetes mellitus Father Gout Cardiac disorder Myocardial infarction Grandfather Alcoholism Myocardial infarction Sister Gout Breast cancer Hypertension Brother Cardiac disorder Kidney stones Stroke syndrome Stroke Other No family history of adverse response to anesthesia Denies family history of Ovarian cancer Prostate cancer Lung cancer Social History Smoking Status: Former smoker Second Hand Exposure: Yes (as a child); Do You Dip or Chew Tobacco: No; Hx Alcohol Use: No Hx Substance Use: No Preferred Language: Greek Communication Ability: Effective Visual Impairment: No Limitations Hearing Ability: Normal Cook Larder Required: No Beliefs That Will Affect Care: None marital status: Current Living Situation: Spouse current occupational status: retired 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) Feels Safe at Home: Yes Childhood Exposure to Second-Hand Smoke: Yes (father) Diet: regular caffeine: No Dental Care, Regularly: Yes Physical Activity Frequency: 3-4 Times per Week Seatbelt Use: always Sunscreen Use: No Assistive Devices: Denture - Upper and Denture - Lower Physical Exam Vital Signs Vital Signs - 24 hr 03/05/23 11:06 03/05/23 11:06 03/05/23 11:17 Temperature 36.6 C Temperature Source Temporal Artery Scan Pulse Rate 63 Pulse Rate [Apical] 58 L Respiratory Rate 18 18 Blood Pressure 145/79 H Blood Pressure [Right Arm] 143/76 H Blood Pressure Mean 101 Blood Pressure Mean [Right Arm] 98 Blood Pressure Position [Right Arm] Sitting Pulse Oximetry 98 96 Oxygen Delivery Method Room Air Room Air Sepsis Recent Fever Within 48 Hours No Sepsis New/Unexplained Change in Mental Status N/A Sepsis Action Taken by Nursing No Action Required 03/05/23 11:17 03/05/23 11:26 03/05/23 11:39 Temperature Temperature Source Pulse Rate 58 L 63 Pulse Rate [Apical] Respiratory Rate Blood Pressure Blood Pressure [Right Arm] Blood Pressure Mean Blood Pressure Mean [Right Arm] Blood Pressure Position [Right Arm] Pulse Oximetry 96 96 Oxygen Delivery Method Room Air Room Air Sepsis Recent Fever Within 48 Hours Sepsis New/Unexplained Change in Mental Status Sepsis Action Taken by Nursing Physical Exam GENERAL: oriented to person, place, and time. appears well-developed and well- nourished. HENT: Exam performed. - Head: Normocephalic and atraumatic. EYES: Conjunctivae and EOM are normal. Right eye exhibits no discharge. Left eye exhibits no discharge. No scleral icterus. NECK: Normal range of motion. Neck supple. No JVD present. CV: Normal rate, regular rhythm, normal heart sounds and intact distal pulses. There is no peripheral edema. Palpable radial pulses bue. PULM/CHEST: Effort normal and breath sounds normal. No respiratory distress. No stridor. no wheezes. no rales. ABD: The abdomen is soft. There is no tenderness. NEURO: Motor and sensation grossly intact. SKIN: Skin is warm and dry. He is not diaphoretic. PSYCH: normal mood and affect. Behavior is normal. Judgment and thought content normal. Course Course 1116: The patient was evaluated in room A9. A complete history and physical exam was performed Cardiac monitoring: An order was placed for continuous cardiac monitoring. The monitor shows a rate of 60 with sinus rhythm interpreted by me 1307: Vital signs stable. Labs and imaging within normal limits. Patient will be admitted to the [facility] hospitalist team. Discussed case with Saman Rajput NP for Dr. Kwan who will evaluate the patient for admission. Administered Medications Discontinued Medications Aspirin (Aspirin Chew 324 Mg) 324 mg PO NOW STA Stop: 03/05/23 11:26 Last Admin: 03/05/23 11:29 Dose: 324 mg Documented By: CRISTINA Medical Decision Making Laboratory Data Attestation: I reviewed the patient's lab results. 03/05/23 11:20 03/05/23 11:20 Labs: Lab Results 03/05/23 Range/Units 11:20 WBC 6.02 (4.8-10.8) K/ul RBC 4.97 (4.70-6.10) M/uL Hgb 15.1 (14.0-18.0) g/dl Hct 43.8 (42.0-52.0) % MCV 88.1 (80.0-100.0) fL MCH 30.4 (25.0-34.0) pg MCHC 34.5 (32.0-36.0) g/dL RDW Std Deviation 44.3 (36.4-46.3) fL RDW Coeff of Lina 13.7 (11.5-14.5) % Plt Count 185 (130-400) K/uL MPV 10.3 (9.4-12.4) fL Immature Gran % (Auto) 0.7 % Neut % (Auto) 52.7 % Lymph % (Auto) 33.2 % [place] % (Auto) 10.1 % Eos % (Auto) 2.8 % Baso % (Auto) 0.5 % Neut # (Auto) 3.17 (1.40-6.50) K/uL Lymph # (Auto) 2.00 (1.20-3.40) K/uL [place] # (Auto) 0.61 H (0.11-0.59) K/uL Eos # (Auto) 0.17 (0.00-0.50) K/uL Baso # (Auto) 0.03 (0.00-0.20) K/uL Immature Gran # (Auto) 0.04 (0.01-0.20) K/uL Sodium 139 (136-145) mmol/L Potassium 3.7 (3.5-5.1) mmol/L Chloride 105 (98-107) mmol/L Carbon Dioxide 27 (21-32) mmol/L Anion Gap 7 (3-11) BUN 22 (6-23) mg/dl Creatinine 1.19 (0.6-1.4) mg/dl Est Cr Clr Drug Dosing 59.4 ml/min Est GFR ( Amer) 67.4 ml/min Est GFR (Non-Af Amer) 58.2 ml/min BUN/Creatinine Ratio 18.5 (10-20) Glucose 120 H (70-99(Fasting)) mg/dl Calcium 9.5 (8.6-10.3) mg/dl Troponin I High Sens 3.5 (0-20) pg/ml Lipase 35 (11-82) U/L ECG Data Attestation: I personally reviewed and interpreted this ECG as follows: Indication: chest pain Rate (beats per minute): 57 Rhythm: normal sinus Findings: + 1st degree AV block; no ST depression, no ST elevation or no prolonged QT [facility] Narrative 1116: The patient was evaluated in room A9. A complete history and physical exam was performed Cardiac monitoring: An order was placed for continuous cardiac monitoring. The monitor shows a rate of 60 with sinus rhythm interpreted by me 1307: Vital signs stable. Labs and imaging within normal limits. Patient will be admitted to the [facility] hospitalist team. Discussed case with Saman Rajput NP for Dr. Kwan who will evaluate the patient for admission. Impression & Plan Chest pain Discharge Plan Visit Data Chief Complaint: Chest Pain Stated Complaint: CHEST PAIN ED Provider: Mahendra Lechuga Discharge Problem: Chest pain Patient Disposition: Being Evaluated by Hospitalist Forms Stand Alone Forms: My [facility] Prescriptions Prescriptions: No Action nystatin 100,000 unit/gram cream 1 applic topical BID PRN (Reason: Rash) vitamin E 200 unit capsule 400 unit PO QAM pantoprazole 40 mg tablet,delayed release (DR/EC) 40 mg PO BID PRN (Reason: gerd) Qty: 360 1RF hydrochlorothiazide 12.5 mg tablet 12.5 mg PO QAM Qty: 90 3RF Trulicity 0.75 mg/0.5 mL pen injector 0.75 mg subcut WK Qty: 2 3RF Rx Instructions: injection once weekly as directed lisinopril 20 mg tablet 20 mg PO QAM Qty: 30 3RF clopidogrel [Plavix] 75 mg tablet 75 mg PO QAM Qty: 90 3RF zolpidem [Ambien] 5 mg tablet 10 mg PO HS PRN (Reason: insomnia) Qty: 60 0RF Rx Instructions: Ongoing therapy Supervising physician Jc Clemons MD GAURAV [id number] olopatadine 0.1 % drops 1 drp OPHTHALMIC (EYE) BID PRN (Reason: NEEDED) Qty: 5 1RF multivitamin tablet 1 tab PO QAM melatonin 5 mg capsule 5 mg PO HS PRN (Reason: Sleep) Metamucil 3.4 gram/5.4 gram powder 1 tbsp PO QAM Rx Instructions: mix into at least 8 oz of water or juice before administering tamsulosin 0.4 mg capsule 0.4 mg PO DAILY Rx Instructions: Take 1 pill after supper. folic acid 400 mcg Tablet 0.4 mg PO QAM ascorbic acid (vitamin C) [Vitamin C] 500 mg Tablet 1 tab PO BID zinc 50 mg Tablet 50 mg PO QAM cholecalciferol (vitamin D3) [Vitamin D3] 1,000 unit Capsule 1,000 unit PO QAM omega 7-jjy-myn-fish oil [Fish Oil] 1,000 mg (120 mg-180 mg) capsule 2 cap PO QAM atorvastatin 80 mg tablet 80 mg PO QAM paroxetine HCl [Paxil] 10 mg tablet 5 mg PO QAM levothyroxine [Synthroid] 75 mcg tablet 75 mcg PO QAM Referrals Referrals: Jc Clemons MD [Primary Care Provider] - Discharge Problem: Chest pain Qualifiers: Chest pain type: unspecified Qualified Code(s): R07.9 - Chest pain, unspecified
[2023-03-05 11:55] LABS: Basophils # (auto) 0.03 K/uL (0.00-0.20); Basophils % (auto) 0.5 %; Eosinophils # (auto) 0.17 K/uL (0.00-0.50); Eosinophils % (auto) 2.8 %; Hematocrit (blood only) 43.8 % (42.0-52.0); Hemoglobin 15.1 g/dl (14.0-18.0); Immature Granulocytes # (auto) 0.04 K/uL (0.01-0.20); Immature Granulocytes % (auto) 0.7 %; Lymphocytes % (auto) 33.2 %; Mean Corpuscular Hemoglobin 30.4 pg (25.0-34.0); Mean Corpuscular Hgb Conc 34.5 g/dL (32.0-36.0); Mean Corpuscular Volume 88.1 fL (80.0-100.0); Mean Platelet Volume 10.3 fL (9.4-12.4); Monocytes # (auto) 0.61 K/uL (0.11-0.59); Monocytes % (auto) 10.1 %; Neutrophils # (auto) 3.17 K/uL (1.40-6.50); Neutrophils % (auto) 52.7 %; Platelet Count 185 K/uL (130-400); RDW Coefficient of Variation 13.7 % (11.5-14.5); RDW Standard Deviation 44.3 fL (36.4-46.3); Red Blood Count 4.97 M/uL (4.70-6.10); White Blood Count 6.02 K/ul (4.8-10.8)
[2023-03-05 12:10] LABS: BUN Creatinine Ratio 18.5 (10-20); Calcium 9.5 mg/dl (8.6-10.3); Creatinine Clr Calc Pharmacy 59.4 ml/min; Est GFR (African American) 67.4 ml/min; Est GFR (Non-African American) 58.2 ml/min; Potassium 3.7 mmol/L (3.5-5.1)
[2023-03-05 12:16] LABS: Troponin I High Sensitivity 3.5 pg/ml (0-20)
--- NOTE | 2023-03-05 12:20 | XRay Report ---
XR chest 1V portable CLINICAL HISTORY: Chest pain, nonspecific TECHNIQUE: Single frontal radiograph of the chest was obtained. Comparison: Comparison is made to chest radiograph of 08/05/2010 FINDINGS: No lines and tubes are seen. Cardiomegaly is noted. Reticular interstitial opacities are seen. No arnulfo dence of pleural effusion or pneumothorax. IMPRESSION: No acute chest disease. ACT 112: Negative or not required by law. Electronically signed by: Luigi Guillermo M.D. 03/05/2023 12:18 PM
--- NOTE | 2023-03-05 12:46 | History & Physical Report ---
Date of Service March 05, 2023 Assessment & Plan (1) Chest pain: Plan: -Admit to the PCU on tele -Currently stable and asymptomatic besides mild nausea at the time of admission -The patient experienced chest tightness running along his entire upper chest along with nausea, dizziness, and intermittent SOB from approximately [id number] -Patient confirms that he experienced progressive SMITH with previous cath and has been experiencing progressive SMITH over the past month -Cardiac workup since arrival has been WNL -While his cardiac workup has been negative, we cannot entirely rule out cardiac etiology at this time, and patient is scheduled for a heart cath on 03/08 -Repeat, 2 hour high sen trop is in process -Cardiology consult placed -If repeat high sen trop is rising, and/or patient has recurrence of symptoms will start heparin drip -Will obtain Coags now if case of need for Heparin drip -S/P 324 mg Aspirin in the ED -If repeat high sen trop is WNL, will start chemical DVT PPX with SQ lovenox -HH/DMII diet -AM CBC, CMP, Mag, PT/INR/APTT (2) SOB (shortness of breath): Plan: -Stable on RA, chest xray is negative, lungs are clear on exam, hemodynamically stable -Low suspicion for pulmonary source at this time -Symptoms have currently resolved -Cannot rule out cardiac etiology at this time -Continue tele, will follow repeat trop, cardiology consult (3) Nausea: Plan: -Could be related to GERD vs Cardiac etiology at this time -No recent emesis or GI symptoms -Will give dose of IV pantoprazole and famotidine and monitor for improvement (4) Dizziness: Plan: -Currently resolved -Occurred with other symptoms this am -Denies the room spinning or changes in hear/ear full ness, low suspicion for vertigo at this time -No focal neuro defects on exam -Continue cardiac workup and monitoring for now (5) GERD without esophagitis: Plan: -Trial of IV pantoprazole and famotidine on admission -Continue daily famotidine and pantoprazole (6) Coronary artery disease: Plan: -Continue plavix and statin -Received 324 mg Aspirin in the ED -Cardiology consult placed (7) Type 2 diabetes mellitus: Plan: -Hold trulicity -Monitor BSG ACHS, goal is 110-140 -Start CF of 50 for now as he is not on insulin therapy at home -HH/DMII diet -Adjust regimen as needed (8) Hypothyroidism: Plan: -Continue levothyroxine (9) Crescendo angina: Plan The patient was discussed with Dr. Kwan at the time of the admission History of Present Illness Chief Complaint: Chest pain, nausea, dizziness Primary Care Provider: Jc Clemons MD Cristian is a 77 year old male with a PMH significant for CAD S/P Post PCI to lat-mid RCA 12/2018; residual moderate early-mid RCA and proximal LAD disease, dyslipidemia, HTN, DMII, previous TIA (on Plavix), sinus bradycardia, prostate c ancer S/P XRT and hormonal therapy, GERD, and hypothyroidism who presented to the [facility] ED on 03/05 with complaints of chest tightness/pain, nausea, and dizziness this am. He remained stable in the ED. Labs including CBC, CMP, and high sen trop were unremarkable. ECG showed sinus bradycardia with 1st degree AV block without acute ST segment or T-wave changes. Chest xray was read as no acute chest disease. The patient was given 324 mg Aspirin prior to admission. The patient is scheduled for Heart Cath on 03/08 as he has been having progressive SMITH and chest discomfort and was recently seen in the Cardiology clinic on 02/24. At the time of the exam the patient was sitting in bed in no acute distress with his sitting bedside. He confirms that he has been experiencing progressive SMITH over the past month while working out or doing his normal activities. This am their cat woke him up around 0800. After waking and still lying in bed he developed nausea, chest tightness, dizziness, and SOB. He states that these symptoms last until approximately 11:30, when he arrived to the ED. His symptoms prior to his cath in 2018 were progressive SMITH. He states that he does not usually experience nausea with his reflux. He has some mild nausea at this time but is otherwise asymptomatic. He was able to walk to the bathroom and back without experiencing recurrence of symptoms. He is a full code and would want his to make medical decisions for him if he could not make them himself. Please refer to Dr. Kwan's attestation for any changes to the treatment plan Allergies Allergy/AdvReac Type Severity Reaction Status Date / Time amoxicillin Allergy Intermediate STOMACH Verified 02/24/23 14:18 UPSET Home Medications Medication Instructions Recorded Confirmed Type ascorbic acid (vitamin C) 500 mg 1 tab PO BID 05/24/18 03/05/23 History tablet (Vitamin C) cholecalciferol (vitamin D3) 25 1,000 unit PO QAM 05/24/18 03/05/23 History mcg (1,000 unit) capsule (Vitamin D3) folic acid 400 mcg tablet 0.4 mg PO QAM 05/24/18 03/05/23 History zinc 50 mg tablet 50 mg PO QAM 05/24/18 03/05/23 History omega 0-uaw-zqi-fish oil 1,000 mg 2 cap PO QAM 12/24/18 03/05/23 History (120 mg-180 mg) capsule (Fish Oil) multivitamin 1 tab PO QAM 02/07/19 03/05/23 History vitamin E 200 unit capsule 400 unit PO QAM 07/06/21 03/05/23 History melatonin 5 mg capsule 5 mg PO HS PRN Sleep 06/28/22 03/05/23 History psyllium husk 3.4 gram/5.4 gram 1 tbsp PO QAM 06/28/22 03/05/23 History oral powder (Metamucil) pantoprazole 40 mg tablet,delayed 40 mg PO BID PRN gerd #360 tabs 07/15/22 03/05/23 Rx release atorvastatin 80 mg tablet 80 mg PO QAM 08/04/22 03/05/23 History levothyroxine 75 mcg tablet 75 mcg PO QAM 08/04/22 03/05/23 History (Synthroid) paroxetine HCl 10 mg tablet (Paxil) 5 mg PO QAM 08/04/22 03/05/23 History hydrochlorothiazide 12.5 mg tablet 12.5 mg PO QAM #90 tabs 10/18/22 03/05/23 Rx nystatin 100,000 unit/gram topical 1 applic topical BID PRN Rash 11/05/22 03/05/23 History cream tamsulosin 0.4 mg capsule 0.4 mg PO DAILY 11/12/22 03/05/23 History dulaglutide 0.75 mg/0.5 mL 0.75 mg (0.5 mL) subcut WK #2 mL 12/27/22 03/05/23 Rx subcutaneous pen injector (Trulicity) lisinopril 20 mg tablet 20 mg PO QAM #30 tabs 09/11/23 11/04/23 Rx clopidogrel 75 mg tablet (Plavix) 75 mg PO QAM #90 tabs 01/18/23 03/05/23 Rx zolpidem 5 mg tablet (Ambien) 10 mg (2 x 5 mg) PO HS PRN 02/03/23 03/05/23 Rx insomnia #60 tabs olopatadine 0.1 % eye drops 1 drp ophthalmic (eye) BID PRN 02/28/23 03/05/23 Rx NEEDED #5 mL Past Med/Surg History Medical History Difficult intravenous access pt reports IV team needed to obtain IV access. Prostate cancer (03/12/21) dx'd 2020. hx radiation. Renal cyst Spinal stenosis of lumbar region Chronic low back pain Facet arthritis of lumbar region Coronary artery disease Follows with Dr. Lopez Type 2 diabetes mellitus Internal hemorrhoids Esophageal reflux Diverticulosis BPH with obstruction/lower urinary tract symptoms Anxiety disorder Excessive anger REASON FOR PAXIL; CONTROLLED Sciatica associated with disorder of lumbar spine Rheumatoid arthritis Obesity (BMI 30-39.9) Schatzki's ring STRETCHING IN PAST X 3 Herniated disc BACK INJECTIONS GERD (gastroesophageal reflux disease) Hypothyroidism Seasonal allergies Transient ischemic attack (TIA) REASON FOR TAKING PLAVIX (06/20/10) Hypertension Hyperlipidemia Insomnia Surgical History H/O vasectomy History of heart artery stent x 1 (2018) History of cardiac cath 2019 - [facility] d/t increased sob - 1 stent History of cataract surgery History of surgery Removal of Oncocytic papillary cystadenoma 07/11/18 History of repair of anterior cruciate ligament of right knee History of esophagogastroduodenoscopy (EGD) History of colonoscopy History of tooth extraction Hx of prostate biopsy History of repair of rotator cuff RT History of arthroscopy RT KNEE X 2 History of appendectomy History of endoscopic sinus surgery NASAL POLYP REMOVAL Family History Mother Family history of diabetes mellitus Leukemia Cholelithiases Grandmother (Paternal) Family history of diabetes mellitus Father Gout Cardiac disorder Myocardial infarction Grandfather Alcoholism Myocardial infarction Sister Gout Breast cancer Hypertension Brother Cardiac disorder Kidney stones Stroke syndrome Stroke Other No family history of adverse response to anesthesia Denies family history of Ovarian cancer Prostate cancer Lung cancer Social History Smoking Status: Never smoker Second Hand Exposure: Yes (as a child); Do You Dip or Chew Tobacco: No; Hx Alcohol Use: No Hx Substance Use: No Preferred Language: Kazakh Communication Ability: Effective Visual Impairment: No Limitations Hearing Ability: Normal 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 Keyliner Required: No Beliefs That Will Affect Care: None marital status: Current Living Situation: Spouse current occupational status: retired 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) Feels Safe at Home: Yes Safety Concerns: Feels Safe At This Time Childhood Exposure to Second-Hand Smoke: Yes (father) Diet: regular caffeine: No Dental Care, Regularly: Yes Physical Activity Frequency: 3-4 Times per Week Seatbelt Use: always Sunscreen Use: No Assistive Devices: Cane and Glasses Physical Exam Physical Exam: Physical Exam: General: In no acute distress, stated age, well-nourished, good hygiene HEENT: Normocephalic, atraumatic, no scleral icterus, pupils around round, symmetrical, and reactive to light, moist mucus membranes, trachea midline, no thyromegaly Chest/Pulm: No reproducible pain with palpation of the chest, No respiratory distress, symmetrical chest expansion, clear breath sounds throughout Cardiac: RRR, no murmurs noted Abdomen: Negative for ascites and bruising, normoactive bowel sounds, soft, non-tender to palpation throughout Musculoskeletal: Symmetrical and without signs of acute trauma, upper and lower extremities with full ROM, no atrophy, spasticity, or flaccidity Extremities: Radial, dorsalis pedis, and posterior tibial pulses are intact and symmetrical, no edema noted in the BL LE's Skin: Warm, dry, no rashes , lesions, or scars noted Neuro: Alert and oriented to person, place, month, year, and president, no fo nancy defects, CN II-XII tested and intact, no tremors noted Psych: No acute distress, calm and cooperative during the exam Results & Data Results & Data Vital Signs (Past 12 Hours) Vital Signs Temp Pulse Pulse Resp BP BP Pulse Ox 03/05/23 11:39 63 03/05/23 11:26 96 03/05/23 11:17 58 L 96 03/05/23 11:17 58 L 18 143/76 H 96 03/05/23 11:06 03/05/23 11:06 36.6 C 63 18 145/79 H 98 O2 Del Method 03/05/23 11:39 03/05/23 11:26 Room Air 03/05/23 11:17 Room Air 03/05/23 11:17 Room Air 03/05/23 11:06 Room Air 03/05/23 11:06 Laboratory Results Abnormal lab results 03/05/23 Range/Units 11:20 Colbert # (Auto) 0.61 H (0.11-0.59) K/uL Glucose 120 H (70-99(Fasting)) mg/dl Diagnostic Findings Chest X-Ray 03/05/23 11:26 XR chest 1V portable CLINICAL HISTORY: Chest pain, nonspecific TECHNIQUE: Single frontal radiograph of the chest was obtained. Comparison: Comparison is made to chest radiograph of 08/05/2010 FINDINGS: No lines and tubes are seen. Cardiomegaly is noted. Reticular interstitial opacities are seen. No evidence of pleural effusion or pneumothorax. IMPRESSION: No acute chest disease. ACT 112: Negative or not required by law. Electronically signed by: Luigi Guillermo M.D. 03/05/2023 12:18 PM ECG Additional Comments: Sinus bradycardia with 1st degree A-V block Low voltage QRS Left anterior fascicular block Abnormal ECG When compared with ECG of 29-JAN-2019 17:43, No significant change was found Code Status & VTE Plan Code Status Full code VTE Prophylaxis Plan VTE Prophylaxis will be ordered: Yes Supervising Physician Co-Signing Physician Notes I personally saw and examined the patient. I verified all cagle points and agree with Saman Rajput PA-C with the following exceptions and/or additions: 77 year old male with recent crescendo anginal symptoms and planned cardiac cath on Tuesday presents to the ER with chest pain. Currently chest pain free. Pain started after waking up around 8am. Associated shortness of breath. Waxing and waning until 11:30am but mainly with nausea rather than pain. Previously symptoms just on exertion, this was the first time at rest. Symptoms similar to prior 2018. O/E A&Ox3, HS RRR, no murmurs, Chest CTAB, Abdo SNT, no pedal edema A/P Crescendo angina - unclear if todays episode is coronary related however given recent crescendo angina will assume it is even if not long enough to elevated troponins. At this point he is due a cardiac cath on Tuesday and appears too unstable for discharge at this time even if not ACS. Recommend observation in hospital to consider cardiac cath on Tuesday or sooner if recurrent symptoms. Consult cardiology PG Care Time/CCT Total # of Minutes Spent Total Time Spent with Patient: Total time spent is greater than 50% in coordination of care (as documented) at patient's floor/unit and/or counseling patient: Coding [place] [address] INT INP/OBS CARE 2/55MIN Patient Type Established Medical Decision Making Moderate Complexity Diagnoses Chest pain R07.9 Chest pain type: unspecified SOB (shortness of breath) R06.02 Nausea R11.0 Dizziness R42 GERD without esophagitis K21.9 Coronary artery disease I25.10 Type 2 diabetes mellitus E11.9 Hypothyroidism E03.9 Crescendo angina I20.0 (1) Chest pain Chest pain type: unspecified Qualified Code(s): R07.9 - Chest pain, unspecified
[2023-03-05] MEDS ORDERED: ACETAMINOPHEN 325 MG TAB PO STA (13:05)
[2023-03-05] MEDS ORDERED: GLUCOSE 10 TAB/TUBE PO PRN (13:15)
[2023-03-05] MEDS ORDERED: CARBOHYDRATES FOR HYPOGLYCEMIA PO PRN (13:15)
[2023-03-05] MEDS ORDERED: GLUCOSE 40% GEL 15 GM TUBE PO PRN (13:15)
[2023-03-05] MEDS ORDERED: GLUCAGON FOR INJ 1 MG VIAL SQ PRN (13:15)
[2023-03-05] MEDS ORDERED: DEXTROSE 50% 50 ML SYRINGE IV PRN (13:15)
[2023-03-05] MEDS ORDERED: PANTOprazole 40 MG in SYRINGE 0 ML IV ONE (13:30)
[2023-03-05 13:58] LABS: Troponin I High Sensitivity 3.9 pg/ml (0-20)
[2023-03-05 14:14] LABS: Partial Thromboplastin Time 27.5 Seconds (21.0-31.0); Prothrombin Time 10.9 Seconds (9.0-12.0)
[2023-03-05] MEDS: FAMOTIDINE 20 MG in SYRINGE 3 ML IV SCH (14:27)
[2023-03-05] MEDS ORDERED: PANTOprazole 40 MG TAB PO PRN (14:51)
[2023-03-05] MEDS ORDERED: ZOLPIDEM TARTRATE 10 MG TAB PO PRN (14:51)
[2023-03-05] MEDS: INSULIN ASPART PER UNIT CHARGE SC SCH ×2 (17:13→20:41)
[2023-03-05] MEDS ORDERED: ENOXAPARIN INJ 40 MG/0.4 ML SYR SQ SCH (21:00)
[2023-03-06] MEDS ORDERED: LEVOTHYROXINE SODIUM 75 MCG TABLET PO SCH (06:30)
[2023-03-06 07:15] LABS: Basophils # (auto) 0.03 K/uL (0.00-0.20); Basophils % (auto) 0.5 %; Eosinophils % (auto) 3.5 %; Hematocrit (blood only) 40.5 % (42.0-52.0); Immature Granulocytes # (auto) 0.04 K/uL (0.01-0.20); Immature Granulocytes % (auto) 0.7 %; Lymphocytes # (auto) 1.63 K/uL (1.20-3.40); Lymphocytes % (auto) 28.4 %; Mean Corpuscular Hemoglobin 30.6 pg (25.0-34.0); Mean Corpuscular Hgb Conc 34.6 g/dL (32.0-36.0); Mean Corpuscular Volume 88.6 fL (80.0-100.0); Mean Platelet Volume 10.6 fL (9.4-12.4); Monocytes # (auto) 0.65 K/uL (0.11-0.59); Monocytes % (auto) 11.3 %; Neutrophils # (auto) 3.18 K/uL (1.40-6.50); Neutrophils % (auto) 55.6 %; Platelet Count 158 K/uL (130-400); RDW Coefficient of Variation 13.9 % (11.5-14.5); RDW Standard Deviation 44.8 fL (36.4-46.3); Red Blood Count 4.57 M/uL (4.70-6.10); White Blood Count 5.73 K/ul (4.8-10.8)
[2023-03-06 07:33] LABS: Albumin Globulin Ratio 1.4 (0.9-2); Albumin Level 3.9 gm/dl (3.4-5.0); BUN Creatinine Ratio 17.9 (10-20); Creatinine Clr Calc Pharmacy 61.3 ml/min; Est GFR (African American) 64.8 ml/min; Est GFR (Non-African American) 55.9 ml/min; Globulin 2.8 gm/dl (2.5-4.0); Magnesium 1.9 mg/dl (1.7-2.4); Potassium 4.1 mmol/L (3.5-5.1); Total Protein 6.7 gm/dl (6.0-8.3)
[2023-03-06 07:40] LABS: Troponin I High Sensitivity 4.2 pg/ml (0-20)
[2023-03-06 07:51] VITALS: BP 135/69; RESP 18; TEMP 97.7; O2SAT 92
[2023-03-06 08:00] LABS: Prothrombin Time 11.2 Seconds (9.0-12.0)
--- NOTE | 2023-03-06 08:21 | Cardiology Consultation ---
Date of Consultation March 06, 2023 Assessment & Plan (1) Crescendo angina: (2) Coronary artery disease: (3) Sinus bradycardia: Plan 1. Crescendo angina: Although his symptoms are worrisome his cardiac enzymes remain normal. This does not exclude progression of coronary artery disease however and he is already scheduled for catheterization on March 08, 2023. We could either keep that in place or move that up and plan on catheterization tomorrow. I think it would be safe to send him home, tomorrow schedule is somewhat busy and it would be late in the day anyhow. He would prefer to go home today and come back in Tuesday. 2. Coronary disease: He has known coronary artery disease with intervention in the past, he has remained on clopidogrel and statin therapy but certainly could have had progression. We could consider stress testing although it may be more prudent to move onto catheterization as planned. I did discuss these options with him and he agrees that he would prefer a definitive answer such as obtained by catheterization. 3. Sinus bradycardia: He has a history of sinus bradycardia, that has been asymptomatic and remains present here in the hospital. It is borderline however, his heart rate has not dropped below 50 and does increase with activities. I do not think this needs to be pursued further. History of Present Illness Reason for Consultation: Exertional chest discomfort and diminished exercise tolerance Attending Physician: Debi Meraz MD History of Present Illness This is a 77-year-old male, he is a patient of Dr. Lopez and he is scheduled for a cardiac catheterization on March 08, 2023. He presented with chest discomfort. He has a history of hypertension, dyslipidemia, diabetes mellitus as well as prostate cancer treated with radiation therapy and hormonal therapy. He also has coronary artery disease and in December 2018 which was identified when he presented with exertional dyspnea and chest discomfort as well as decreased exercise tolerance. He had catheterization on January 29, 2019 where severe right coronary stenosis was identified as well as moderate proximal LAD stenosis. He had PCI to the right coronary artery using a drug-eluting stent. He had been doing well, however he was seen in the office on February 24, 2023 with recurrent dyspnea on exertion, he had a relatively recent decline in exercise tolerance and had symptoms similar to his initial presentation in 2019. He was therefore scheduled for cardiac catheterization. In addition he has known sinus bradycardia but this has been asymptomatic. Evaluation so far includes an electrocardiogram on presentation which shows sinus bradycardia at 57 bpm with first-degree AV block (RI nearly 300 ms). He does have left axis deviation or left anterior fascicular block but no acute changes. Laboratory studies are notable for a high-sensitivity troponin ranging from 3.5-4.2 (all normal) over a 19-hour time span. On presentation Lovenox was instituted but I believe his other medications remain in place, including clopidogrel. I did discuss his symptoms with him, the chest discomfort he admits might be related to GERD as he sometimes has a hard time telling the difference in his chest discomfort lasted for 5 hours before resolving in the emergency room. The shortness of breath is noticeable but has been more gradual in onset, may be changing from week to week but not in the last few days. Here in the hospital he has been feeling well since shortly after presentation. Allergies Allergy/AdvReac Type Severity Reaction Status Date / Time amoxicillin Allergy Intermediate STOMACH Verified 02/24/23 14:18 UPSET Home Medications Medication Instructions Recorded Confirmed Type ascorbic acid (vitamin C) 500 mg 1 tab PO BID 05/24/18 03/05/23 History tablet (Vitamin C) cholecalciferol (vitamin D3) 25 1,000 unit PO QAM 05/24/18 03/05/23 History mcg (1,000 unit) capsule (Vitamin D3) folic acid 400 mcg tablet 0.4 mg PO QAM 05/24/18 03/05/23 History zinc 50 mg tablet 50 mg PO QAM 05/24/18 03/05/23 History omega 7-bum-sxu-fish oil 1,000 mg 2 cap PO QAM 12/24/18 03/05/23 History (120 mg-180 mg) capsule (Fish Oil) multivitamin 1 tab PO QAM 02/07/19 03/05/23 History vitamin E 200 unit capsule 400 unit PO QAM 07/06/21 03/05/23 History melatonin 5 mg capsule 5 mg PO HS PRN Sleep 06/28/22 03/05/23 History psyllium husk 3.4 gram/5.4 gram 1 tbsp PO QAM 06/28/22 03/05/23 History oral powder (Metamucil) pantoprazole 40 mg tablet,delayed 40 mg PO BID PRN gerd #360 tabs 07/15/22 03/05/23 Rx release atorvastatin 80 mg tablet 80 mg PO QAM 08/04/22 03/05/23 History levothyroxine 75 mcg tablet 75 mcg PO QAM 08/04/22 03/05/23 History (Synthroid) paroxetine HCl 10 mg tablet (Paxil) 5 mg PO QAM 08/04/22 03/05/23 History hydrochlorothiazide 12.5 mg tablet 12.5 mg PO QAM #90 tabs 10/18/22 03/05/23 Rx nystatin 100,000 unit/gram topical 1 applic topical BID PRN Rash 11/05/22 03/05/23 History cream tamsulosin 0.4 mg capsule 0.4 mg PO DAILY 11/12/22 03/05/23 History dulaglutide 0.75 mg/0.5 mL 0.75 mg (0.5 mL) subcut WK #2 mL 12/27/22 03/05/23 Rx subcutaneous pen injector (Trulicity) lisinopril 20 mg tablet 20 mg PO QAM #30 tabs 01/10/23 03/05/23 Rx clopidogrel 75 mg tablet (Plavix) 75 mg PO QAM #90 tabs 01/18/23 03/05/23 Rx zolpidem 5 mg tablet (Ambien) 10 mg (2 x 5 mg) PO HS PRN 02/03/23 03/05/23 Rx insomnia #60 tabs olopatadine 0.1 % eye drops 1 drp ophthalmic (eye) BID PRN 02/28/23 03/05/23 Rx NEEDED #5 mL Patient History Medical History Difficult intravenous access pt reports IV team needed to obtain IV access. Prostate cancer (03/12/21) dx'd 2020. hx radiation. Renal cyst Spinal stenosis of lumbar region Chronic low back pain Facet arthritis of lumbar region Coronary artery disease Follows with Dr. Lopez Type 2 diabetes mellitus Internal hemorrhoids Esophageal reflux Diverticulosis BPH with obstruction/lower urinary tract symptoms Anxiety disorder Excessive anger REASON FOR PAXIL; CONTROLLED Sciatica associated with disorder of lumbar spine Rheumatoid arthritis Obesity (BMI 30-39.9) Schatzki's ring STRETCHING IN PAST X 3 Herniated disc BACK INJECTIONS GERD (gastroesophageal reflux disease) Hypothyroidism Seasonal allergies Transient ischemic attack (TIA) REASON FOR TAKING PLAVIX (06/20/10) Hypertension Hyperlipidemia Insomnia Surgical History H/O vasectomy History of heart artery stent x 1 (2019) History of cardiac cath [address] - [facility] d/t increased sob - 1 stent History of cataract surgery History of surgery Removal of Oncocytic papillary cystadenoma 07/11/18 History of repair of anterior cruciate ligament of right knee History of esophagogastroduodenoscopy (EGD) History of colonoscopy History of tooth extraction Hx of prostate biopsy History of repair of rotator cuff RT History of arthroscopy RT KNEE X 2 History of appendectomy History of endoscopic sinus surgery NASAL POLYP REMOVAL Family History Mother Family history of diabetes mellitus Leukemia Cholelithiases Grandmother (Paternal) Family history of diabetes mellitus Father Gout Cardiac disorder Myocardial infarction Grandfather Alcoholism Myocardial infarction Sister Gout Breast cancer Hypertension Brother Cardiac disorder Kidney stones Stroke syndrome Stroke Other No family history of adverse response to anesthesia Denies family history of Ovarian cancer Prostate cancer Lung cancer Social History Smoking Status: Never smoker Second Hand Exposure: Yes (as a child); Do You Dip or Chew Tobacco: No; Hx Alcohol Use: No Hx Substance Use: No Preferred Language: Amharic Communication Ability: Effective Visual Impairment: No Limitations Hearing Ability: Normal Cloth Framer Required: No Beliefs That Will Affect Care: None marital status: Current Living Situation: Spouse current occupational status: retired 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 HEENT: Unremarkable Neck: No jugular venous distention, carotid pulses are normal and equal bilaterally without bruits. Pulmonary: Clear to auscultation bilaterally. Cardiac: Regular rhythm with no murmur, gallop or rub. Abdomen: Soft, nontender with normal bowel sounds. Extremities: No edema. Distal pulses intact. Neurologic: No focal findings. Skin: No rash, ecchymoses or petechiae. Results & Data Vital Signs (Past 12 Hours) Vital Signs Temp Pulse Resp BP Pulse Ox O2 Del Method 03/06/23 07:50 36.5 C 58 L 18 135/69 92 Room Air 03/06/23 03:09 36.6 C 62 17 133/69 93 Room Air 03/05/23 23:08 36.6 C 58 L 18 137/68 96 Room Air Laboratory Results Cardiac Enzymes 03/05/23 03/05/23 03/06/23 Range/Units 11:20 13:20 06:27 AST 22 (13-39) U/L Troponin I High Sens 3.5 3.9 4.2 (0-20) pg/ml Coagulation 03/05/23 03/06/23 Range/Units 11:20 06:27 PT 10.9 11.2 (9.0-12.0) Seconds APTT 27.5 29.0 (21.0-31.0) Seconds CBC 03/05/23 03/06/23 Range/Units 11:20 06:27 WBC 6.02 5.73 (4.8-10.8) K/ul RBC 4.97 4.57 L (4.70-6.10) M/uL Hgb 15.1 14.0 (14.0-18.0) g/dl Hct 43.8 40.5 L (42.0-52.0) % Plt Count 185 158 (130-400) K/uL Neut # (Auto) 3.17 3.18 (1.40-6.50) K/uL Lymph # (Auto) 2.00 1.63 (1.20-3.40) K/uL [place] # (Auto) 0.61 H 0.65 H (0.11-0.59) K/uL Eos # (Auto) 0.17 0.20 (0.00-0.50) K/uL Baso # (Auto) 0.03 0.03 (0.00-0.20) K/uL Comprehensive Metabolic Panel 03/05/23 03/06/23 Range/Units 11:20 06:27 Sodium 139 138 (136-145) mmol/L Potassium 3.7 4.1 (3.5-5.1) mmol/L Chloride 105 104 (98-107) mmol/L Carbon Dioxide 27 28 (21-32) mmol/L BUN 22 22 (6-23) mg/dl Creatinine 1.19 1.23 (0.6-1.4) mg/dl Glucose 120 H 113 H (70-99(Fasting)) mg/dl Calcium 9.5 9.0 (8.6-10.3) mg/dl AST 22 (13-39) U/L ALT 20 (7-52) U/L Alkaline Phosphatase 59 (34-104) U/L Total Protein 6.7 (6.0-8.3) gm/dl Albumin 3.9 (3.4-5.0) gm/dl Intake and Output 03/05/23 03/06/23 03/06/23 23:59 06:59 14:59 Intake Total Balance Intake: Oral Other: # Unmeasured Voids Weight Weight Measurement Method Diagnostic Findings Telemetry: Sinus rhythm and sinus bradycardia, however his heart rate has been greater than 50 and seems appropriate with occasional increases with activity. PG Care Time/CCT Total # of Minutes Spent Total Time Spent with Patient: Total time spent is greater than 50% in coordination of care (as documented) at patient's floor/unit and/or counseling patient: Coding Level of Care Code 26052 INT INP/OBS CARE 3/75MIN Diagnoses Crescendo angina I20.0 Coronary artery disease of [place] artery of [place] heart with stable angina pectoris I25.118 Coronary Disease-Associated Artery/Lesion type: [place] artery [place] vs. transplanted heart: [place] heart Associated angina: with stable angina Sinus bradycardia R00.1 (2) Coronary artery disease Coronary Disease-Associated Artery/Lesion type: [place] artery [place] vs. transplanted heart: [place] heart Associated angina: with stable angina Qualified Code(s): I25.118 - Atherosclerotic heart disease of [place] coronary artery with other forms of angina pectoris
[2023-03-06] MEDS: INSULIN ASPART PER UNIT CHARGE SC SCH (08:30)
[2023-03-06] MEDS: FAMOTIDINE 20 MG in SYRINGE 3 ML IV SCH (08:35)
--- NOTE | 2023-03-06 08:39 | Hospitalist Progress Note ---
Date of Service March 06, 2023 Assessment & Plan (1) Chest pain: Plan: CAD S/P Post PCI to lat-mid RCA 12/2018; residual moderate early-mid RCA and proximal LAD disease, dyslipidemia, HTN, DMII, previous TIA (on Plavix), sinus bradycardia, prostate cancer S/P XRT and hormonal therapy, GERD, and hypothyroidism who presented to the [facility] ED on 03/05 with crescendo angina. -cardiology consult -planned for coronary angiogram 03/08 -serial HS trop has been negative -monitor EKG, telemetry -continue ASA, plavix, atorvastatin. may benefit from adding B-indy but defer to film cutter (2) SOB (shortness of breath): Plan: -not hypoxic or tachycardic, chest xray is negative, lungs are clear on exam -Low suspicion for PE -Symptoms have currently resolved -Potentially anginal equivalent (3) Nausea: Plan: -Could be related to GERD vs Cardiac etiology at this time -No recent emesis or GI symptoms -Will give dose of IV pantoprazole and famotidine and monitor for improvement (4) Dizziness: Plan: -Currently resolved -Occurred with other symptoms this am -Denies the room spinning or changes in hear/ear full ness, low suspicion for vertigo at this time -No focal neuro defects on exam -Continue cardiac workup and monitoring for now (5) GERD without esophagitis: Plan: -Trial of IV pantoprazole and famotidine on admission -Continue daily famotidine and pantoprazole (6) Coronary artery disease: Plan: see above (7) Type 2 diabetes mellitus: Plan: -Hold trulicity -Monitor BSG ACHS, goal is 110-140 -Start CF of 50 for now as he is not on insulin therapy at home -HH/DMII diet -Adjust regimen as needed (8) Hypothyroidism: Plan: -Continue levothyroxine (9) Crescendo angina: Plan Hypertension - continue HCTZ and lisinopril BPH - continue tamsulosin Regularly takes ambien 10 mg HS for sleep at home? - confirm home meds. High risk of delirium and falls, discuss with patient DVT PPx - continue enoxaparin 40 sq Admission and Anticipated Discharge Date Admission Date: March 05, 2023 Results & Data Results & Data Vital Signs (Past 12 Hours) Vital Signs Temp Pulse Resp BP Pulse Ox O2 Del Method 03/06/23 07:50 36.5 C 58 L 18 135/69 92 Room Air 03/06/23 03:09 36.6 C 62 17 133/69 93 Room Air 03/05/23 23:08 36.6 C 58 L 18 137/68 96 Room Air Laboratory Results 03/06/23 06:27 03/06/23 06:27 PG Care Time/CCT Total # of Minutes Spent Total Time Spent with Patient: Total time spent is greater than 50% in coordination of care (as documented) at patient's floor/unit and/or counseling patient: Coding Diagnoses Chest pain R07.9 Chest pain type: unspecified SOB (shortness of breath) R06.02 Nausea R11.0 Dizziness R42 GERD without esophagitis K21.9 Coronary artery disease I25.10 Type 2 diabetes mellitus E11.9 Hypothyroidism E03.9 Crescendo angina I20.0 (1) Chest pain Chest pain type: unspecified Qualified Code(s): R07.9 - Chest pain, unspecified
[2023-03-06] MEDS ORDERED: PARoxetine HCL 10 MG TAB PO SCH (09:00)
[2023-03-06] MEDS ORDERED: lisinopril 20 MG TAB PO SCH (09:00)
[2023-03-06] MEDS ORDERED: ATORVASTATIN 40 MG TAB PO SCH (09:00)
[2023-03-06] MEDS ORDERED: hydroCHLOROthiazide 25 MG TAB PO SCH (09:00)
[2023-03-06] MEDS ORDERED: CLOPIDOGREL BISULFATE 75 MG TAB PO SCH (09:00)
--- NOTE | 2023-03-06 09:58 | Discharge Summary ---
Date of Service March 06, 2023 Admission HPI Per Admitting Provider Cristian is a 77 year old male with a PMH significant for CAD S/P Post PCI to lat-mid RCA 12/2018; residual moderate early-mid RCA and proximal LAD disease, dyslipidemia, HTN, DMII, previous TIA (on Plavix), sinus bradycardia, prostate cancer S/P XRT and hormonal therapy, GERD, and hypothyroidism who presented to the [facility] ED on 03/05 with complaints of chest tightness/pain, nausea, and dizziness this am. He remained stable in the ED. Labs including CBC, CMP, and high sen trop were unremarkable. ECG showed sinus bradycardia with 1st degree AV block without acute ST segment or T-wave changes. Chest xray was read as no acute chest disease. The patient was given 324 mg Aspirin prior to admission. The patient is scheduled for Heart Cath on 03/08 as he has been having progressive SMITH and chest discomfort and was recently seen in the Cardiology clinic on 02/24. At the time of the exam the patient was sitting in bed in no acute distress with his sitting bedside. He confirms that he has been experiencing pro gressive SMITH over the past month while working out or doing his normal activities. This am their cat woke him up around 0800. After waking and still lying in bed he developed nausea, chest tightness, dizziness, and SOB. He states that these symptoms last until approximately 11:30, when he arrived to the ED. His symptoms prior to his cath in 2018 were progressive SMITH. He states that he does not usually experience nausea with his reflux. He has some mild nausea at this time but is otherwise asymptomatic. He was able to walk to the bathroom and back without experiencing recurrence of symptoms. He is a full code and would want his to make medical decisions for him if he could not make them himself. Principal Diagnosis chest pain Discharge Data Allergies Allergy/AdvReac Type Severity Reaction Status Date / Time amoxicillin Allergy Intermediate STOMACH Verified 02/24/23 14:18 UPSET Consultations 03/05/23 12:34 ED Decision to Admit Stat 03/05/23 13:01 Consult Cardiology Routine Hospital Course (1) Chest pain: (2) SOB (shortness of breath): (3) GERD without esophagitis: (4) Coronary artery disease: (5) Type 2 diabetes mellitus: (6) Hypothyroidism: (7) Prostate cancer: Plan CAD Chest pain Dyspnea on exertion -evaluated for episode of chest pain. EKG reassuring and serial HS-troponin neg ative. Computer Hardware Technician consulted, discussed with Dr. Michelle. Chest pain seems suspicious for GI/reflux however his dyspnea on exertion is more concerning for anginal equivalent. He was chest pain free for the remainder of observation in the hospital. Remains at increased risk of ACS, but no current ACS and reasonable to go home and report for coronary angiogram 03/08 as already scheduled. I discussed return precautions with him. -continue high dose statin, ASA, plavix -coronary angiogram with Dr. Lopez 03/08 GERD -increase PPI to bid until after the coronary angiogram, maalox/TUMS PRN DM type 2 - continue usual meds Hypothyroidism - continue levothyroxine HTN - continue lisinopil and HCTZ Total Time Total Time Spent Total Time Spent (In Minutes): 20 Discharge Plan Discharge Items Patient Disposition: Home - Self-Care Reason For Visit: CHEST PAIN Discharge Diagnosis: Chest pain Activity: As commented below Activity Comment: avoid heavy exertion until after your heart cath test Non-emergency contact: Primary Care Provider and Computer Hardware Technician Call non-emergency contact if: you have any medication questions Follow-up/Referrals: Jc Clemons MD [Primary Care Provider] - Steve Lopez MD [Physician] - Diet: Heart Healthy Addtl Attending Provider Instructions: Try taking your pantoprazole twice a day until after your heart cath. If you have acid reflux symptoms you can try maalox or TUMS but if the pain isn't relieved promptly you should seek medical attention, because you are at elevated risk of heart attack. Pending Studies at Discharge: No Stand-Alone Forms: My [facility] [place], Smoking Cessation Medications and DC Order Prescriptions: Continued nystatin 100,000 unit/gram cream 1 applic topical BID PRN (Reason: Rash) vitamin E 200 unit capsule 400 unit PO QAM pantoprazole 40 mg tablet,delayed release (DR/EC) 40 mg PO BID PRN (Reason: gerd) Qty: 360 1RF hydrochlorothiazide 12.5 mg tablet 12.5 mg PO QAM Qty: 90 3RF Trulicity 0.75 mg/0.5 mL pen injector 0.75 mg subcut WK Qty: 2 3RF Rx Instructions: injection once weekly as directed lisinopril 20 mg tablet 20 mg PO QAM Qty: 30 3RF clopidogrel [Plavix] 75 mg tablet 75 mg PO QAM Qty: 90 3RF zolpidem [Ambien] 5 mg tablet 10 mg PO HS PRN (Reason: insomnia) Qty: 60 0RF Rx Instructions: Ongoing therapy Supervising physician Jc Clemons MD [facility] [id number] olopatadine 0.1 % drops 1 drp OPHTHALMIC (EYE) BID PRN (Reason: NEEDED) Qty: 5 1RF multivitamin tablet 1 tab PO QAM melatonin 5 mg capsule 5 mg PO HS PRN (Reason: Sleep) Metamucil 3.4 gram/5.4 gram powder 1 tbsp PO QAM Rx Instructions: mix into at least 8 oz of water or juice before administering tamsulosin 0.4 mg capsule 0.4 mg PO DAILY Rx Instructions: Take 1 pill after supper. folic acid 400 mcg Tablet 0.4 mg PO QAM ascorbic acid (vitamin C) [Vitamin C] 500 mg Tablet 1 tab PO BID zinc 50 mg Tablet 50 mg PO QAM cholecalciferol (vitamin D3) [Vitamin D3] 1,000 unit Capsule 1,000 unit PO QAM omega 8-kcs-lce-fish oil [Fish Oil] 1,000 mg (120 mg-180 mg) capsule 2 cap PO QAM atorvastatin 80 mg tablet 80 mg PO QAM paroxetine HCl [Paxil] 10 mg tablet 5 mg PO QAM levothyroxine [Synthroid] 75 mcg tablet 75 mcg PO QAM Discharge Orders: Discharge Order (Routine); Ordered 03/06/23 Ordered By: Debi Meraz Admission Data Admit Date/Time: 03/05/23 12:46 Attending Provider: Debi Meraz Admit Provider: Xavier Kwan Primary Care Provider: Jc Clemons Other Providers: Xavier Kwan; Enzo Michelle Coding Level of Care Code 38004 IN/OBS DISCH 30 MIN/LESS Diagnoses Chest pain R07.9 Chest pain type: unspecified SOB (shortness of breath) R06.02 GERD without esophagitis K21.9 Coronary artery disease of [place] artery of [place] heart with stable angina pectoris I25.118 Coronary Disease-Associated Artery/Lesion type: [place] artery [place] vs. transplanted heart: [place] heart Associated angina: with stable angina Type 2 diabetes mellitus E11.9 Hypothyroidism E03.9 Prostate cancer C61
[2023-03-06 10:19] VITALS: PULSE 58
--- NOTE | 2023-03-06 19:02 | Electrocardiogram Report ---
Test Reason : Blood Pressure : / mmHG Vent. Rate : 057 BPM Atrial Rate : 057 BPM P-R Int : 292 ms QRS Dur : 086 ms QT Int : 416 ms P-R-T Axes : 006 -50 -19 degrees QTc Int : 404 ms Sinus bradycardia with 1st degree A-V block Low voltage QRS Left anterior fascicular block Abnormal ECG When compared with ECG of 29-JAN-2019 17:43, No significant change was found Confirmed by Enzo Michelle ([id number]) on 03/06/2023 7:02:21 PM Referred By: REFERRED SELF Confirmed By:Enzo Michelle
--- NOTE | 2023-03-07 09:23 | XCELERA ---
[id number] \\[id number]
== END 2023-03-06 13:02 | disposition home or self-care (01) ==
LOC: ED 11:02 → EDINP 11:02 → SUATTDRO 12:46 → 2E 14:49